=== PATIENT | female | born 1995 | race Caucasian/White ===

== ENCOUNTER 2023-08-08 10:42 | Emergency (ER) | payer BC, SELFPAY ==
--- NOTE | ~2023-08-08 | XR_ITS ---
EXAMINATION: XR hand LT min 3V DATE: 08/08/2023 11:32 INDICATION: Left hand pain and swelling. Dog bite. TECHNIQUE: 3 views of left hand were obtained. COMPARISON: None. FINDINGS: Bone alignment is normal. No fracture. Joint spaces are normal. IMPRESSION: 1. No fracture or radiopaque foreign body. Reviewed, dictated and finalized at location A. IFF OFFICER
[2023-08-08 10:45] VITALS: BP 132/87; PULSE 89; RESP 16; TEMP 36.4; O2SAT 100
[2023-08-08 11:25] VITALS: BP 129/90; PULSE 94; RESP 17; O2SAT 99
[2023-08-08] MEDS: HYDROcodone/acetaminophen (*CRX) 5-325 MG TABLET 1 TAB PO (14:42)
[2023-08-08] MEDS: AMOXICILLIN/CLAVULANATE K 875-125 MG TAB 1 TABLET PO (14:42)
[2023-08-08] MEDS: KETOROLAC (*BKC) 60 MG/2 ML VIAL IM (14:43)
[2023-08-08 14:45] VITALS: BP 126/82; PULSE 77; RESP 17; O2SAT 99
--- NOTE | 2023-08-08 15:04 | ED.ANIMALBIT ---
HPI - Animal Bite General Chief Complaint: Animal Bite Stated Complaint: dog bite Time Seen by Provider: 08/08/23 13:14 Source: patient Mode of arrival: ambulatory Limitations: no limitations History of Present Illness HPI narrative: Patient is a 28-year-old female who presents to the ED with report of a dog bite to her left hand. Patient reports she was walking her dogs on the bike trails last night when a stray dog came up to her dogs. She attempted to break away the stray dog from her dogs and was bitten her left hand. She sustained a puncture wound to her left palm. Patient states pain became worse today. She states she is having difficulty fully extending her 2nd and 3rd fingers. Denies any numbness. Tetanus up-to-date. Related Data Allergies Allergy/AdvReac Type Severity Reaction Status Date / Time No Known Allergies Allergy Verified 08/08/23 11:21 Review of Systems Review of Systems: CONSTITUTIONAL: Denies fever, chills, or sweats. SKIN: See HPI MUSCULOSKELETAL: See HPI. NEUROLOGIC: Denies headache, dizziness, numbness, or weakness. All systems reviewed & are unremarkable except as noted in HPI and below Exam Narrative: GENERAL: Well appearing, well-nourished, non-toxic, in no acute distress. HEAD: Normocephalic, atraumatic. RESPIRATORY: Airway patent, respirations nonlabored. CARDIOVASCULAR: Regular rate and rhythm. Radial pulses 2+. MUSCULOSKELETAL: Moves all extremities. No gross deformities. Small puncture wound to the middle of left palm, no active bleeding. No drainage. Wound approximated and nearly closed to anatomical location. Tenderness surrounding wound. Dorsal left hand with mild amount/bruising developing, more severe tenderness along dorsal aspect of hand. Tenderness with passive extension of 2nd and 3rd digits. Mild limited active range of motion of finger extension. No swelling or redness noted of fingers. Sensation intact. Good capillary refill. SKIN: Warm, dry, normal color. NEURO: A&O X3. Speech clear. Cranial nerves II-XII grossly intact. Steady gait. No ataxic movements. PSYCHIATRIC: Appropriate mood and affect. Normal interaction. Course Vital Signs Vital signs: Vital Signs Temperature 97.5 F L 08/08/23 10:45 Pulse Rate 89 08/08/23 10:45 Respiratory Rate 16 08/08/23 10:45 Blood Pressure 132/87 08/08/23 10:45 Pulse Oximetry 100 08/08/23 10:45 Oxygen Delivery Room Air 08/08/23 10:45 Temperature 97.5 F L 08/08/23 10:45 Pulse Rate 77 08/08/23 14:45 Respiratory Rate 17 08/08/23 14:45 Blood Pressure 126/82 08/08/23 14:45 Pulse Oximetry 99 08/08/23 14:45 Oxygen Delivery Room Air 08/08/23 10:45 MDM - Animal Bite MDM Narrative Medical decision making narrative: Patient presented to ED with dog bite to left hand that occurred last night. Provoked attack by stray dog. Discussed case with Thao Beltran, infection control, no indication for rabies vaccine. Tetanus up-to-date. Patient neurovascularly intact. X-ray without evidence of foreign body or fracture. Puncture wound essentially closed already. Patient did irrigate wound after it occurred. Patient reporting difficulty extending 2nd and 3rd digits. No evidence of flexor tenosynovitis on exam. No swelling or redness of fingers noted. No puncture wounds to fingers. Discussed this is likely due to acute swelling and trauma. I did discuss case with Dr. Jesus, plastic/hand surgery, agreed likely d/t swelling. Patient can follow-up with him in the office. I discussed these recommendations with patient. She is in agreement with plan. Will start patient on Augmentin for infection prevention. Will provide a few pain pills for pain control at home. Patient given return precautions. She agrees with plan. Discharged in stable condition. Medical Records Attestation: I reviewed the patient's medical records. Imaging Data Attestation: I personally reviewed and interpreted th
== END 2023-08-08 15:18 | disposition home or self-care (01) ==
PROVIDERS: Emergency Provider Physician Assistant; PCP Nurse Practitioner Family
DX: S61.452A Open bite of left hand, initial encounter (principal); W54.0XXA Bitten by dog, initial encounter
CPT/HCPCS: 73130; 96372; 99283; A9270; J1885

== ENCOUNTER 2023-09-16 11:09 | Emergency (ER) | payer OTHER, BC, SELFPAY ==
--- NOTE | ~2023-09-16 | XR_ITS ---
EXAMINATION: XR ankle LT min 3V, XR tibia fibula LT 2V DATE: 09/16/2023 12:19 INDICATION: Left lower leg and ankle pain post fall TECHNIQUE: 1. Anteroposterior and lateral views of the left tibia and fibula were obtained on overlapping proxim al and distal images. 2. Anteroposterior, oblique, mortise, and lateral views of the left ankle were obtained. COMPARISON: None. FINDINGS: Nondisplaced mildly comminuted mid diaphyseal fracture of the left fibula with small posterolateral b utterfly fragment. Small minimally displaced likely avulsion fracture fragment along the posterior ri m of the tibial plafond/posterior malleolus. No evident fracture at the medial malleolus. The ankle m ortise remains congruent however given the injury pattern, absence of a medial malleolar fracture in the presence of soft tissue swelling about the malleolus with maintain concern for likely deltoid lig ament tear. No other fractures identified in the visualized left foot. Joint spaces are normal. IMPRESSION: 1. Nondisplaced mildly comminuted Maisonneuve fracture of the mid left tibial diaphysis. 2. Small minimally displaced avulsion fracture at the posterior malleolus/posterior rim of the tibial plafond and. 3. No fracture of the medial malleolus but with overlying soft tissue swelling and given pattern of i njury suspected deltoid ligament and syndesmotic tears which would be an unstable ankle injury patter n. Recommend orthopedic consultation. Reviewed, dictated and finalized at location A. LER CAREGIVER IMPRESSION: 1. Nondisplaced mildly comminuted Maisonneuve fracture of the mid left tibial d iaphysis. 2. Small minimally displaced avulsion fracture at the posterior malleolus/poste rior rim of the tibial plafond and. 3. No fracture of the medial malleolus but with overlying soft tissue swelling and given pattern of injury suspected deltoid ligament and syndesmotic tears wh ich would be an unstable ankle injury pattern. Recommend orthopedic consultatio n.
[2023-09-16 11:12] VITALS: BP 116/75; PULSE 77; RESP 20; TEMP 36.6; O2SAT 100
[2023-09-16] MEDS: HYDROmorphone HCL INJ (*CRX) 1 MG/ML SYR 0.5 MG IV PUSH ×2 (11:21→13:24)
--- NOTE | 2023-09-16 11:57 | ED.LOWEXIN ---
HPI - Extremity Injury (Lower) General Chief Complaint: Extremity Injury, Lower Stated Complaint: ankle injury Time Seen by Provider: 09/16/23 11:11 Source: patient and EMS Mode of arrival: EMS Limitations: no limitations History of Present Illness HPI Narrative: Patient is a 28-year-old female who presents the ED via EMS with report of left ankle pain. 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 She states her left ankle inverted and she fell to the ground. She felt and heard a pop in her left ankle. She complains of pain to her left lateral ankle, left lateral mid lower leg. She was unable to ambulate after the incident and EMS was contacted. Denies any numbness or tingling. Denies any head injury or LOC. Denies any other injuries or pain. Patient given morphine and Zofran EN route by EMS. Related Data Allergies Allergy/AdvReac Type Severity Reaction Status Date / Time No Known Allergies Allergy Verified 09/16/23 11:15 Review of Systems Review of Systems: CONSTITUTIONAL: Denies fever, chills, or sweats. MUSCULOSKELETAL: See HPI. NEUROLOGIC: Denies headache, dizziness, numbness, or weakness. All systems reviewed & are unremarkable except as noted in HPI and below Exam Narrative: GENERAL: Well appearing, well-nourished, non-toxic, in no acute distress. HEAD: Normocephalic, atraumatic. RESPIRATORY: Airway patent, respirations nonlabored. CARDIOVASCULAR: Regular rate and rhythm. Pedal pulses easily palpable. MUSCULOSKELETAL: Limited range of motion to L ankle d/t pain. Tenderness to palpation to L medial malleoli, L lateral lower leg, just proximal from ankle. No significant tenderness to palpation throughout knee or foot/along 5th metatarsal. Sensation intact. Capillary refill intact. SKIN: Warm, dry, normal color. NEURO: A&O X3. Speech clear. No ataxic movements. PSYCHIATRIC: Appropriate mood and affect. Normal interaction. Course Vital Signs Vital signs: Vital Signs Temperature 97.8 F 09/16/23 11:12 Pulse Rate 77 09/16/23 11:12 Respiratory Rate 20 09/16/23 11:12 Blood Pressure 116/75 09/16/23 11:12 Pulse Oximetry 100 09/16/23 11:12 Oxygen Delivery Room Air 02/17/24 11:12 Temperature 97.8 F 09/16/23 11:12 Pulse Rate 80 09/16/23 14:13 Respiratory Rate 20 09/16/23 14:13 Blood Pressure 112/74 09/16/23 14:13 Pulse Oximetry 99 09/16/23 14:13 Oxygen Delivery Room Air 09/16/23 11:12 MDM - Extremity Injury (Lower) MDM Narrative Medical decision making narrative: Patient presented to ED status post slip on ice/glf, pain to L ankle. Patient's injury is consistent with musculoskeletal etiology. No signs of neurologic or vascular compromise on physical examination. Compartments are soft without signs of compartment syndrome. XR left ankle, tib/fibula showing Maisonneuve type fracture, mid fibular fx, posterior malleoli avulsion fx, soft tissue swelling of medial malleoli concerning for ligamentous injury. Discussed case with Dr. Navarro, orthopedics, who reviewed images himself, recommended stirrup splint and he will see patient in office next week. No other injuries from the fall. Patient is felt to be stable for discharge home and further outpatient management and treatment. Placed in splint, given crutches, discussed return precautions. Pain medication sent to pharmacy. D/C in stable condition. Medical Records Attestation: I reviewed the patient's medical records. Imaging Data Attestation: I personally reviewed and interpreted this imaging study as follows: Radiologist's impression: ITS Impressions Ankle X-Ray 09/16/23 12:27 IMPRESSION: 1. Nondisplaced mildly comminuted Maisonneuve fracture of the mid left tibial diaphysis. 2. Small minimally displaced avulsion fracture at the posterior malleolus/posterior rim of the tibial plafond and. 3
[2023-09-16] MEDS: ACETAMINOPHEN 500 MG TABLET 1000 MG PO (13:24)
[2023-09-16] MEDS: ONDANSETRON INJ 4 MG/2 ML VIAL IV PUSH (13:24)
[2023-09-16] MEDS: KETOROLAC 30 MG/ML VIAL (*BKC) IV PUSH (13:24)
[2023-09-16 14:13] VITALS: BP 112/74; PULSE 80; RESP 20; O2SAT 99
== END 2023-09-16 14:15 | disposition home or self-care (01) ==
PROVIDERS: Emergency Provider Physician Assistant; PCP Nurse Practitioner Family
DX: S82.865A Nondisplaced Maisonneuve's fracture of left leg, initial encounter for closed fracture (principal); S82.872A Displaced pilon fracture of left tibia, initial encounter for closed fracture; W00.0XXA Fall on same level due to ice and snow, initial encounter
CPT/HCPCS: 29515; 73590; 73610; 96374; 96375; 96376; 99284; A9270; J1170; J1885; J2405

== ENCOUNTER 2023-09-25 11:08 | Outpatient (CLI) | payer OTHER, SELFPAY ==
--- NOTE | ~2023-09-25 | MR_ITS ---
MRI of the left ankle Clinical history: Maisonneuve fracture Technique: Coronal proton-density and proton-density fat-sat images, axial proton-density and proton- density fat-sat images, and sagittal proton-density and proton-density fat-sat images were acquired. Findings: There is complete tear of the distal anterior inferior tibiofibular ligament. There is prob able tear of the interosseous tibiofibular syndesmosis as well. Distal posterior inferior tibiofibula r ligament appears intact. Anterior and posterior talofibular ligaments, and calcaneofibular ligament are intact. Deltoid ligament is intact with increased signal, which could reflect sprain. Medial flexor tendons, peroneal tendons, anterior extensor tendons, and Achilles tendon are intact. T here is focal fluid distention of the talus posterior tendon sheath, which could reflect focal tendon synovitis. There is a minimally displaced intra-articular vertically oriented fracture of the posterior malleolu s. No osteochondral lesion of the talar dome seen. There is bone contusion at the medial malleolus wi thout fracture. Remaining bone marrow signals are unremarkable. There are tibiotalar and subtalar driss nt effusions. Plantar fascia is intact. There is diffuse subcutaneous soft tissue edema about the ankle. Impression: Complete tear of the distal anterior inferior tibiofibular ligament, as well as full-thickness tearin g of the interosseous tibiofibular syndesmosis. Minimally displaced posterior malleolus fracture, as detailed above. Contusion at the medial malleolus with probable sprain of the deltoid ligament. Subtalar and tibiotalar joint effusions. Reviewed, dictated and finalized at [facility]. [employer] Impression: Complete tear of the distal anterior inferior tibiofibular ligament, as well as full-thickness tearing of the interosseous tibiofibular syndesmosis. Minimally displaced posterior malleolus fracture, as detailed above. Contusion at the medial malleolus with probable sprain of the deltoid ligament. Subtalar and tibiotalar joint effusions.
== END 2023-09-25 11:09 ==
PROVIDERS: PCP Orthopaedic Surgery; Visit Provider Orthopaedic Surgery
DX: S82.862A Displaced Maisonneuve's fracture of left leg, initial encounter for closed fracture (principal); X58.XXXA Exposure to other specified factors, initial encounter
CPT/HCPCS: 73721

== ENCOUNTER 2023-10-02 01:14 | Day surgery (SDC) | payer OTHER, SELFPAY ==
--- NOTE | 2023-09-28 08:09 | PM.IMHP ---
H&P: HPI History of Present Illness Date/Time: 09/28/23 08:09 Chief Complaint: Patient presents with a Maisonneuve fracture left. Review of Systems Musculoskeletal: Musculoskeletal: Reports arthralgias, Reports joint swelling and Reports stiffness [facility] Surgical History Surgical History History of tonsillectomy Family History Family History Mother Hypertension Grandparent Hypertension Cerebrovascular accident Diabetes mellitus Other Cerebrovascular accident Social History Social History Smoking status: Never smoker Alcohol intake: never Substance use type: does not use Do You Feel Safe in your Home?: Yes Lack of Transportation: No Lack of Food: Never True Current Housing: I Have Housing Concerned About Future Housing: No Difficulty Paying Gas/Electric Bills: No Difficulty Paying for Meds: No Currently Unemployed: No Education: Master's Degree or Higher Difficulty w/ Childcare or Family Care: No Living arrangements: with friend(s) Additional living arrangements comments: lives with boyfriend Occupation/Education: occupation 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 She is tender both medial lateral. The ankle appears to be reasonably stable. She is also tender up at the fracture on the fibula mid shaft. She has walks with an abnormal gait. She is in a cast at this time and is nonweightbearing now. Eyes: General: appearance normal, both eyes and all related structures Neck: Neck: supple Resp: Effort & Inspection: normal respiratory effort Cardio: Rate: regular rate Rhythm: regular rhythm Assessment and Plan Assessment and plan (1) Maisonneuve fracture of left fibula: Code(s): S82.862A - Displaced Maisonneuve's fracture of left leg, initial encounter for closed fracture Status: Acute Assessment and Plan: Patient has a Maisonneuve Fracture left. She has disruption of the syndesmosis. Discussion with the radiologist of the MRI indicates the disruption occurs to the extent of the MRI scan. Overall alignment and mortise view looked good. We discussed both operative and non operative treatment options. She would like to go with the fixation of the syndesmosis let it heal in anatomic position I will proceed per her request.
[2023-09-29 08:55] VITALS: BMI 28.0
--- NOTE | 2023-09-29 08:58 | PC.NURSE ---
Report to the Outpatient Waiting Room, entrance under the green pavilion located off [facility], at time 0800 on date 10/02/23. Planned Procedure Time: 1000. Time changes happen often and if your time is changed the preop area will call you the afternoon before. - You and your visitor will be asked to self-screen and do not enter if you have any COVID symptoms. - A mask is optional within the hospital at this time. Patients may have clear liquids (water, carbonated beverages, clear teas, apple juice) until 3 hours prior to surgery with a maximum of 20 ounces. - No food from midnight until time of surgery Take the following medications with a SIP of water the morning of surgery: PAIN PILL IF NEEDED DO NOT STOP ANY OF YOUR OTHER PRESCRIPTION MEDICATIONS PRIOR TO SURGERY ?EXCEPT THE FOLLOWING Medications to discontinue per physician: N/A Date to take last dose: N/A Please no make-up, nail slovak, hairspray, perfume, deodorant, or body powder the day of surgery. No jewelry (including any body piercings) or valuables the day of surgery, leave them at home. Please take a shower or bath the night before, or the morning of, surgery with an antibacterial soap. Wear comfortable, loose fitting clothing. - Jewelry must be removed prior to entering the operating room. Rings and piercings that are not removed may be cut off. - The hospital will not accept responsibility for valuables. - Please leave all valuables, including medications, at home the day of surgery. If you are going home after surgery, a licensed belly dump driver must drive you home. - NO public transportation without another adult if you receive anesthesia. - We recommend that an adult stay with you for 24 hours following discharge. - We also recommend that you do not drive, make important decision, drink alcoholic beverages, or take any drugs that were not prescribed by your health care provider for at least 24 hours after your discharge time. Follow any additional instructions given to you from your surgeon. If you or anyone in your household have experienced Covid symptoms in the past week, please notify your surgeon or the nurse liaison at the phone number below for possible testing. Telephone instructions given to NICKO GALVAN and asked if any additional questions and then verbalized understanding. Patient advised to call surgeon office or pre surgery nurse liaison [phone] if any additional questions.
[2023-10-02] VITALS (14 sets, daily range): BP systolic 97–134; BP diastolic 58–81; PULSE 66–109; RESP 10–20; TEMP 36.5–37.6; O2SAT 96–100; BMI 28.0
--- NOTE | ~2023-10-02 | XR_ITS ---
EXAMINATION: XR surgery orthopedic DATE: 10/02/2023 10:48 INDICATION: ORIF left ankle injury TECHNIQUE: 2 fluoroscopic images of the left ankle were obtained during procedure performed by Dr. Nighat garcia. Radiologist was not present for the imaging or procedure. The amount of fluoroscopy time used during this procedure was 1.1 minutes. COMPARISON: Radiographs dated 09/16/2023 and MRI dated 08/2623 FINDINGS: Images demonstrate metallic buttons at either side of a pair of lucent tunnels extending across the m etaphyseal regions of the distal left tibia and fibula consistent with a tightrope type syndesmotic f ixation. Again seen is a subtle nondisplaced small fracture at the posterior margin of the posterior malleolus. Alignment appears essentially stomach with a congruent ankle mortise. IMPRESSION: 1. Fluoroscopy utilized during left distal tibiofibular syndesmotic fixation. See procedure note for further detail. Reviewed, dictated and finalized at location A. PARTS HANDLER IMPRESSION: 1. Fluoroscopy utilized during left distal tibiofibular syndesmotic fixation. S ee procedure note for further detail.
--- NOTE | 2023-10-02 06:57 | WPDHPUPDATE1 ---
History and Physical Update Update Date/Time: 10/02/23 06:57 History and Physical has been reviewed, including an updated exam of the patient. There are NO changes in the patient's condition. Risks, benefits, and alternatives have been discussed and questions answered. Patient agrees to proceed with procedure.
[2023-10-02] MEDS: LACTATED RINGERS 1,000 ML 30 ML IV CONT ×3 (08:00→12:12)
[2023-10-02] MEDS: ACETAMINOPHEN 500 MG TABLET 1000 MG PO (08:12)
[2023-10-02] MEDS: KETOROLAC 15 MG/ML VIAL (*BKC) IV PUSH (08:12)
--- NOTE | 2023-10-02 08:36 | P.PNAN_ITS ---
Anes - Initial Pre Proc Eval Procedure: Operation Date: 10/02/23 10:00 Proposed Procedures p Open Reduction Internal Fixation Left Syndesmotic Disruption Maisonneuve Fracture - Roe Navarro MD Date/Time: 10/02/23 08:36 Surgeon: Roe Navarro MD Pre Op Diagnosis: displaced Maisonneuve fx left leg Patient Data Age: 28 Gender: F Height: 1.78 m Weight: 88.5 kg Allergies Allergy/AdvReac Type Severity Reaction Status Date / Time No Known Allergies Allergy Verified 10/02/23 09:20 Home Medications Medication Instructions Recorded Confirmed Type hydrocodone 5 mg-acetaminophen 300 1 tablet PO QHS PRN pain #30 tabs 09/19/23 09/29/23 Rx mg tablet Patient hx anesthesia problems: none Family hx anesthesia problems: none Results Review: All pre-operative results and documents have been reviewed as part of the pre- operative evaluation. [facility] Surgical History Surgical History History of tonsillectomy Family History Family History Mother Hypertension Grandparent Hypertension Cerebrovascular accident Diabetes mellitus Other Cerebrovascular accident Social History Social History Smoking status: Never smoker Alcohol intake: never Substance use: never Substance use type: does not use Do You Feel Safe in your Home?: Yes Lack of Transportation: No Lack of Food: Never True Current Housing: I Have Housing Concerned About Future Housing: No Difficulty Paying Gas/Electric Bills: No Difficulty Paying for Meds: No Currently Unemployed: No Education: Master's Degree or Higher Difficulty w/ Childcare or Family Care: No Living arrangements: with friend(s) Additional living arrangements comments: lives with boyfriend Occupation/Education: occupation 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 Informed Consent: The patient's anesthetic plan and its attendant risks and benefits were discussed with the patient/family/POA. Questions were solicited and answers provided to the satisfaction of the patient/family/POA.
[2023-10-02] MEDS: ceFAZolin 2 GM/D5W 50 ML 2 GM/50 ML BAG IVPB (09:55)
--- NOTE | 2023-10-02 10:40 | W.PM.PROC2 ---
Procedure Note - Detailed Date of Procedure 10/02/23 Pre-op Diagnosis [place] left leg Post-op Diagnosis Same Procedure Performed Open reduction internal fixation the repair of the syndesmosis using 2 tight ropes Surgeon Roe Navarro MD Anesthesia General Indications Pain and ruptured syndesomosis Description of Procedure Patient brought to operating room 8. A general anesthetic was administered. Patient was sterilely prepped and draped in usual manner. Longitudinal incision made over the lateral malleolus. Dissection was carried down to the fascia and the lateral malleolus found. Internally rotating the leg about 30? to apply the plate. Two tight ropes were placed across. They were tightened appropriately. At this point the mortise was stable. She did open a bit to stress testing before the incision was made. The wounds were irrigated, hemostasis obtained, and closed with 2-0 Vicryl and 3-0 Prolene. A splint was applied. Implants Arthrex Tightropes Estimated Blood Loss 10 Complications No immediate complications Disposition PACU [facility] Billing Surgery - Charge Forward: Surgery Iraida ([place] Fixation [id number])
[2023-10-02] MEDS: fentaNYL CITRATE INJ (*CRX) 100 MCG/2 ML VIAL 25 MCG IV PUSH ×8 (11:24→12:48)
--- NOTE | 2023-10-02 11:44 | WPDANESPNB ---
Anes - Peripheral Nerve Block Date/Time: 10/02/23 11:44 I have discussed with the patient/family/POA the placement of a peripheral nerve block for post-operative pain management, including associated risks, benefits, complications, and side effects. Alternative methods of post-operative analgesia were detailed. Questions were solicited and answers provided to the satisfaction of the patient/family/POA. Time-Out: A pre-procedural Time-Out was completed immediately before starting the procedure and confirmed: Patient Identification, Site, Procedure, Patient Position and the Availability of Requisite Equipment. Clinical Indications: Acute post-operative pain management requested by the operative surgeon. Nerve Block Insertion Note Anes-nerve block: posterior fossa sciatic left and adductor canal left Patient position: supine (for adductor canal) and other (right lateral for popliteal) Skin prep: chlorhexidine Needle: 22 gauge, stimulating, insulated echogenic needle. Needle length: 80 mm Technique: nerve stimulation lost at (mA) (for popliteal lost at 0.2) and ultrasound Injectate: bupivacaine 0.5% with epi 5 mcg/ml (20 mL for popliteal, 10 mL for adductor canal (no epi)) Observations: tolerated well Complications: none Procedure start time:: 1133 Procedure end time:: 1141
[2023-10-02] MEDS: HYDROmorphone HCL INJ (*CRX) 1 MG/ML SYR 0.5 MG IV PUSH ×4 (11:49→12:07)
[2023-10-02] MEDS: diazePAM INJ (*CRX) 10 MG/2 ML SYRINGE 2.5 MG IV PUSH ×2 (12:11→12:18)
[2023-10-02] MEDS: oxyCODONE HCL (*CRX) 5 MG TAB IR PO (13:27)
== END 2023-10-02 14:07 | disposition home or self-care (01) ==
PROVIDERS: PCP Nurse Practitioner Family; Visit Provider Orthopaedic Surgery
PROC: (CPT 27829; principal; 2023-10-02 10:00)
DX: S82.862A Displaced Maisonneuve's fracture of left leg, initial encounter for closed fracture (principal); Z79.891 Long term (current) use of opiate analgesic; Z98.890 Other specified postprocedural states; G89.18 Other acute postprocedural pain; Z82.49 Family history of ischemic heart disease and other diseases of the circulatory system; X58.XXXA Exposure to other specified factors, initial encounter
CPT/HCPCS: 64445; 64447; 27829; 99199; A9270; J0690; J1100; J1170; J1200; J1885; J2250; J2405; J2704; J3010; J3360; J7120; L2116